=== PATIENT | male | born 1985 | race Caucasian/White ===

== ENCOUNTER 2018-01-20 23:12 | Emergency (ER) | payer OTHER ==
[~2018-01-20] VITALS: Ht 180.3 cm; Wt 72.7 kg
[2018-01-20 23:15] VITALS: BP 129/82
[2018-01-20] MEDS ORDERED: CEPH-572 PO (23:57)
== END 2018-01-21 00:11 | disposition home or self-care (01) ==
LOC: ER 23:13
DX: L03.113 Cellulitis of right upper limb (principal); Z88.2 Allergy status to sulfonamides; Z79.2 Long term (current) use of antibiotics
CPT/HCPCS: 73110; 99284

== ENCOUNTER 2018-10-15 12:09 | Emergency (ER) | payer MEDICAID, OTHER ==
[~2018-10-15] VITALS: Ht 177.8 cm; Wt 70.5 kg
[2018-10-15 12:10] VITALS: BP 123/83
[2018-10-15] MEDS ORDERED: TETanus/Pertussis (Acell)/Diphther VAC/PF (Tdap-Adult) 0.5ml syringe IM ONE (14:20)
[2018-10-15] MEDS ORDERED: LIDOcaine 1% w/epiNEPHrine 1:200,000 30ml vial IM ONE (14:20)
[2018-10-15] MEDS ORDERED: CEPH-572 PO (15:41)
== END 2018-10-15 15:53 | disposition home or self-care (01) ==
LOC: ER 12:09
DX: L72.3 Sebaceous cyst (principal); Z98.890 Other specified postprocedural states; Z88.2 Allergy status to sulfonamides; Z88.1 Allergy status to other antibiotic agents; Z79.2 Long term (current) use of antibiotics
CPT/HCPCS: 10060; 73590; 99283; J3490

== ENCOUNTER 2022-10-14 18:11 | Emergency (ER) | payer MEDICAID ==
[~2022-10-14] VITALS: Ht 180.3 cm; Wt 70.5 kg
[2022-10-14 18:29] VITALS: BP 131/91
[2022-10-14] MEDS ORDERED: mag hydrox/Alum hydrox/simeth 30ml oral suspension PO ONE (20:40)
[2022-10-14] MEDS ORDERED: LIDOcaine Viscous 15ml cup MM ONE (20:40)
[2022-10-14] MEDS ORDERED: pantoprazole 40mg Tablet.DR PO ONE (20:40)
[2022-10-14] MEDS ORDERED: acetaminophen 325mg tablet PO ONE (20:40)
[2022-10-14 22:00] LABS: BASOPHILS % (AUTO) 0.5 % (0-1); EOSINOPHILS # (AUTO) 0.6 X10'3 (0-0.9); EOSINOPHILS % (AUTO) 5.9 % (0-6); HEMOGLOBIN 15.3 g/dl (14.0-17.9); LYMPHOCYTES # (AUTO) 2.7 X10'3 (1.1-4.8); LYMPHOCYTES % (AUTO) 28.7 % (21-51); MEAN CORPUSCULAR HEMOGLOBIN 31.1 PG (27.0-31.0); MEAN CORPUSCULAR VOLUME 91.5 FL (78-98); MEAN PLATELET VOLUME 8.3 FL (7.4-10.4); MONOCYTES # (AUTO) 0.8 X10'3 (0-0.9); MONOCYTES % (AUTO) 8.1 % (2-12); NEUTROPHILS # (AUTO) 5.4 X10'3 (1.8-7.7); NEUTROPHILS % (AUTO) 56.8 % (42-75); PLATELET COUNT 262 X10'3 (140-440); RED BLOOD COUNT 4.91 X10'6 (4.70-6.10); RED CELL DISTRIBUTION WIDTH 12.4 % (11.5-14.5); WHITE BLOOD COUNT 9.5 X10'3 (4.5-11.0)
[2022-10-14 22:05] LABS: ALANINE AMINOTRANSFERASE 23 U/L (12-78); ALBUMIN 4.2 G/DL (3.4-5.0); ALBUMIN/GLOBULIN RATIO 1.4 (1.1-1.5); ALKALINE PHOSPHATASE 98 IU/L (46-116); ANION GAP 7 (8-16); ASPARTATE AMINO TRANSFERASE 17 U/L (10-37); BILIRUBIN,TOTAL 0.3 MG/DL (0.1-1.0); BLOOD UREA NITROGEN 18 MG/DL (7-18); CALCIUM 8.9 MG/DL (8.5-10.1); CHLORIDE 103 MMOL/L (99-107); GLUCOSE 92 MG/DL (70-104); POTASSIUM 4.5 MMOL/L (3.5-5.1); SODIUM 139 MMOL/L (135-145); TOTAL CARBON DIOXIDE 29.5 MMOL/L (24-32); TOTAL PROTEIN 7.2 G/DL (6.4-8.2); eGFR 84 ML/MIN
[2022-10-14] MEDS ORDERED: iohexol 350MG/ML 100ml bottle IV ONE (22:06)
== END 2022-10-14 23:18 | disposition home or self-care (01) ==
LOC: ER 18:13
DX: R07.81 Pleurodynia (principal); M79.10 Myalgia, unspecified site; Z88.2 Allergy status to sulfonamides; Z88.5 Allergy status to narcotic agent
CPT/HCPCS: 36415; 71045; 71275; 74174; 80053; 85025; 99285; J3490; Q9967